=== PATIENT | female | born 1945 | race Caucasian/White ===

== ENCOUNTER 2017-09-23 04:42 | Emergency (ER) | payer OTHER ==
[2017-09-23] MEDS ORDERED: Phenylephrine 1% Nasal Spray (15 ml) ONE (05:10)
--- NOTE | 2017-09-23 05:16 | C.PDOC ---
History Of Present Illness 71 year old female presents to the ED for evaluation of left sided nose bleeding that has been on and off for the past 5 days. Patient reports she was taking Plavix but recently stopped. Patient denies injury, fall, trauma, weakness, numbness, nausea, dizziness. Chief Complaint (Nursing): ENT Problem History Per: Patient History/Exam Limitations: None Onset/Duration Of Symptoms: Days (5) Current Symptoms Are (Timing): Still Present Symptoms Have Been: Continuous Anticoagulant/Antiplatlet Use?: No Recent Aspirin Use: No Past Medical History Reviewed: Historical Data, Nursing Documentation, Vital Signs Vital Signs: Last Vital Signs Temp 97.5 F L 09/23/17 05:41 Pulse 92 H 09/23/17 05:41 Resp 16 09/23/17 05:41 BP 145/62 09/23/17 05:41 Pulse Ox 99 09/23/17 05:53 - Medical History PMH: HTN, Hypercholesterolemia Surgical History: No Surg Hx Family History: States: Unknown Family Hx - Social History Hx Alcohol Use: No Hx Substance Use: No - Immunization History Hx Tetanus Toxoid Vaccination: No Hx Influenza Vaccination: No Hx Pneumococcal Vaccination: No Review Of Systems Constitutional: Negative for: Fever, Chills ENT: Positive for: Nose Pain, Nose Discharge. Negative for: Nose Congestion Cardiovascular: Negative for: Chest Pain, Palpitations Respiratory: Negative for: Shortness of Breath Gastrointestinal: Negative for: Nausea, Vomiting Neurological: Negative for: Weakness, Numbness Physical Exam - Physical Exam Appears: Non-toxic, No Acute Distress Skin: Normal Color, Warm, Dry Head: Atraumatic, Normacephalic Eye(s): bilateral: Normal Inspection Nose: Epistaxis (left nares, blood clot) Oral Mucosa: Moist Throat: Normal, No Erythema, No Exudate Neck: Normal ROM, Supple Chest: Symmetrical Cardiovascular: Rhythm Regular Respiratory: Normal Breath Sounds, No Rales, No Rhonchi, No Wheezing Gastrointestinal/Abdominal: Soft, No Tenderness, No Guarding, No Rebound Extremity: Normal ROM, No Tenderness, No Swelling Neurological/Psych: Oriented x3, Normal Speech Gait: Steady ED Course And Treatment - Laboratory Results Result Diagrams: 09/23/17 05:29 09/23/17 05:29 O2 Sat by Pulse Oximetry: 99 (ON RA) Pulse Ox Interpretation: Normal Medical Decision Making Medical Decision Making: neosynephrine was topically applied, nasal tampon was inserted with no post nasal drip noted Disposition Counseled Patient/Family Regarding: Diagnosis - Disposition Referrals: Lizzy Contreras MD [Staff Provider] - Adonis Blanca MD [Staff Provider] - Disposition: HOME/ ROUTINE Disposition Time: 05:51 Condition: STABLE Instructions: Nosebleeds (DC) Forms: [facility] ([place]) - POA Present On Arrival: None - Clinical Impression Clinical Impression: Anterior epistaxis, Hypokalemia - Scribe Statement The provider has reviewed the documentation as recorded by the Scribe Nathanael Jarrell All medical record entries made by the Scribe were at my direction and personally dictated by me. I have reviewed the chart and agree that the record accurately reflects my personal performance of the history, physical exam, medical decision making, and the department course for this patient. I have also personally directed, reviewed, and agree with the discharge instructions and disposition.
[2017-09-23 05:32] LABS: BASO # 0.1 K/uL (0.0-0.2); EOS # 0.2 K/uL (0.0-0.7); EOS % 2.9 % (0.0-4.0); HEMOGLOBIN 11.7 g/dL (11.0-16.0); LYMPH # 2.1 K/uL (1.0-4.3); LYMPH % 32.2 % (20.0-40.0); MEAN CELL VOLUME 78.4 fL (81.0-99.0); MEAN CORPUSCULAR HEMOGLOBIN 26.5 pg (27.0-31.0); MEAN CORPUSCULAR HGB CONC 33.8 g/dL (33.0-37.0); MEAN PLATELET VOLUME 7.9 fL (7.2-11.7); MONO # 0.4 K/uL (0.0-0.8); MONO % 6.1 % (0.0-10.0); NEUT # 3.8 K/uL (1.8-7.0); NEUT % 57.8 % (50.0-75.0); NRBC % 0.2 % (0.0-2.0); RBC 4.4 Mil/uL (3.80-5.20); WHITE BLOOD COUNT 6.6 K/uL (4.8-10.8)
[2017-09-23 05:44] LABS: PROTHROMBIN TIME 10.8 SECONDS (9.7-12.2)
[2017-09-23 05:48] LABS: ALB/GLOB RATIO 1.1 (1.0-2.1); ALBUMIN 3.8 g/dL (3.5-5.0); ALT/SGPT 10 U/L (9-52); AST/SGOT 24 U/L (14-36); BLOOD UREA NITROGEN 19 mg/dL (7-17); CALCIUM 8.9 mg/dl (8.6-10.4); GFR AFRICAN-AMERICAN > 60; GFR NON-AFRICAN AMERICAN > 60
[2017-09-23] MEDS ORDERED: Potassium Chloride 20 mEq/15 ml LIQ UD PO STA (05:50)
[2017-09-23] MEDS ORDERED: Potassium Chloride 20 mEq ER Tab PO ONE (05:58)
[2017-09-23 06:42] VITALS: BP 156/64; PULSE 91; RESP 14; TEMP 97.8; O2SAT 96
== END 2017-09-23 06:59 | disposition home or self-care (01) ==
LOC: C.ER 04:42
DX: R04.0 Epistaxis (principal); E87.6 Hypokalemia

== ENCOUNTER 2018-08-29 12:35 | Outpatient (CLI) | payer OTHER | END 2018-08-29 12:36 | disposition home or self-care (01) | LOC: C.MAMMO 12:36 | DX: Z12.31 Encounter for screening mammogram for malignant neoplasm of breast (principal) ==